=== PATIENT | male | born 1970 | race Caucasian/White ===

== ENCOUNTER → 2018-01-16 10:06 | Outpatient (CLI) | payer OTHER, SELFPAY ==
[2018-01-16 12:25] LABS: ALB/GLOB Ratio 1.1 RATIO (0.9-2.4); AST(SGOT) 20 U/L (15-37); Alanine Aminotransfer ALT/SGPT 39 U/L (16-61); Albumin, Serum 3.9 g/dL (3.2-5.0); Alkaline Phosphatase 83 U/L (45-117); Anion Gap 6 (5-15); BUN 9 mg/dL (7-18); BUN/Creat Ratio 8.9 RATIO (10-20); Calcium,Total 8.7 mg/dL (8.5-10.1); Chloride 108 mmol/L (98-107); Cholesterol 155 mg/dL (200); Creatinine, Serum 1.01 mg/dL (0.70-1.30); EST Glomerular Filtration Rate 85 mL/min (>60); Est Glom Filt Rate - Afr Amer 103 mL/min (>60); Globulin 3.6 g/dL (2.2-4.2); Glucose 90 mg/dL (74-106); High Density Lipoprotein 30 mg/dL; Protein, Total 7.5 g/dL (6.4-8.2); Sodium Level 146 mmol/L (136-145); Triglycerides 166 mg/dL; Very Low Density Lipoprotein 33 mg/dL (5-40)
== END ==
PROVIDERS: Family Provider Family Medicine; PCP Family Medicine; Visit Provider Family Medicine
DX: E78.5 Hyperlipidemia, unspecified (principal); K21.9 Gastro-esophageal reflux disease without esophagitis
CPT/HCPCS: 36415; 80053; 80061

== ENCOUNTER → 2018-08-04 13:48 | Outpatient (CLI) | payer OTHER, SELFPAY ==
--- NOTE | 2018-08-04 13:56 | ECHOD_ITS ---
Reason For Study: HEART VALVE DISEASE Procedure This was a 2D Doppler, Color Flow transthoracic echocardiogram. Exam performed in department. Left Ventricle Normal size and thickness. The estimated ejection fraction is 65 %. Normal diastology for age. No regional wall motion abnormalities noted. Right Ventricle Normal size and thickness. Normal systolic function. Atria Normal left atrium. Normal right atrium. Normal atrial septum. Mitral Valve The mitral valve is structurally normal. No prolapse or stenosis seen. Tricuspid Valve Normal tricuspid valve. Trivial tricuspid valve insufficiency. Right ventricular systolic pressure estimated to be 26 mmHg. Aortic Valve Normal aortic valve. Trisinus/trileaflet aortic valve. Pulmonic Valve Normal pulmonic valve. Great Vessels Normal aortic root. Normal arch. Normal inferior vena cava. Inferior vena cava collapse with sniff. Pericardium/Pleural No pericardial effusion. MMode/2D Measurements & Calculations LVIDd: 4.3 cm IVSd: 0.68 cm Ao root diam: 3.3 cm LVIDs: 3.0 cm LVPWd: 0.83 cm RVDd: 3.7 cm FS: 28.6 % LAV(MOD-bp): 35.6 ml LA A4 area: 14.7 cm2 LA dimension(2D): 3.2 cm LAV(MOD-bp) Indexed: 18.4 ml/m2 LAV(MOD-sp2): 38.6 ml LAV(MOD-sp4): 32.0 ml RA A4 area: 13.8 cm2 Time Measurements MV dec time: 0.31 sec Doppler Measurements & Calculations MV E max rory: 94.2 cm/sec Lat Peak E' Rory: 14.8 cm/sec Med Peak E' Rory: 10.6 cm/sec MV A max rory: 90.0 cm/sec E/E' lat: 6.3 E/E' med: 8.9 MV E/A: 1.0 Ao V2 max: 141.6 cm/sec LV V1 max: 114.8 cm/sec PA V2 max: 122.2 cm/sec Ao max P.0 mmHg LV V1 max P.3 mmHg TR max rory: 241.2 cm/sec TR max P.7 mmHg Interpretation Summary The estimated ejection fraction is 65 %. Normal diastology for age. Trivial tricuspid valve insufficiency. Right ventricular systolic pressure estimated to be 26 mmHg. There is no comparison study available. Ordering Physician: Israel Logan Referring Physician: ISRAEL LOGAN Performed By: Iris Rhodes RDCS, RVT
== END ==
PROVIDERS: Family Provider Family Medicine; PCP Family Medicine; Referring Provider Family Medicine; Visit Provider Family Medicine
DX: I38 Endocarditis, valve unspecified (principal)
CPT/HCPCS: 93306

== ENCOUNTER 2018-09-19 00:32 | Emergency (ER) | payer OTHER, SELFPAY ==
[2018-09-19 00:33] VITALS: BP 142/72; PULSE 96; RESP 15; TEMP 36.6; O2SAT 97; BMI 33.0
--- NOTE | 2018-09-19 00:57 | ED.DCSUM_ITS ---
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 Subsequently, he woke up so on after falling asleep with asthma symptoms. He states this has happened before when he has had reflux. He denies any vomiting. He did his albuterol MDI at home several times and got some relief but is not back to normal and was worried about using his MDI to much. He states when this has happened in the past, his asthma flareup last for several hours and then usually he is fine. - Past Medical History (1) Asthma Status: Chronic (2) GERD (gastroesophageal reflux disease) Status: Chronic Past Medical History - Allergies and Home Meds Allergies/Adverse Reactions: Allergies lansoprazole [From Prevacid] Adverse Reaction (Verified 09/19/18 00:36) Nausea theophylline Adverse Reaction (Verified 09/19/18 00:36) Hives Primary Care Physician: Darinel Foley MD [Primary Care Provider] - Lives: Spouse/ Significant Other Smoking Status: Never smoker Review of Systems General: Denies: Chills, Fever Cardiovascular: Reports: Chest pain - tightness. Denies: Palpitations Respiratory: Reports: Dyspnea, Cough. Denies: Sputum Gastrointestinal: Denies: Abdominal pain, Nausea, Vomiting, Diarrhea Musculoskeletal: Denies: Swelling, Extremity Pain Physical Exam Vital Signs/Narrative: Vital Signs Temp Pulse Resp BP Pulse Ox 09/19/18 00:33 97.9 F 96 15 142/72 H 97 Inital Vital Signs reviewed: Yes General: Well nourished, Well developed, No Acute Distress - speaking in full sentences Head: Normocephalic, Atraumatic Eyes: Perrl, EOMI Neck: Supple, Nontender, No JVD Cardiovascular: Regular rate, Regular rhythm, No murmurs Respiratory: No distress, Chest nontender, Wheezing - slight insp/exp, diffusely Skin: Normal color, No rash, No Trauma Neurological: Alert, Oriented x3, Cranial nerves II-XII grossly intact, Normal Strength, Normal Sensation, Normal Gait Psychological: Normal affect, Normal Mood Diagnostic/Tx/Re-eval - Medical Decision Making Patient was given a duo nebulizer treatment, he is feeling much better. He is comfortable going home. I do not think he needs further emergency workup right now. We will give him a prescription for prednisone as a wait and see prescription without initiating it at this time and he is comfortable with that plan as well. Given reasons to return. ED Disposition - Plan for ED Patient: Disposition: Home or Assisted Living Diagnosis: Acute asthma exacerbation Instructions: ED Inhaler Use Prescriptions: Prednisone [Deltasone] 40 mg PO DAILY #10 tab Referrals: Darinel Foley MD [Primary Care Provider] - 3-5 Days if not improving Additional Instructions: If symptoms last longer than 1 or 2 days, fill and take prescription for prednisone until finished.
[2018-09-19] MEDS: Ipratropium/Albuterol Sulfate 3 ML AMPUL.NEB INHALATION (01:05)
[2018-09-19 01:06] VITALS: PULSE 96; RESP 16
[2018-09-19 01:11] VITALS: O2SAT 96
[2018-09-19 01:34] VITALS: PULSE 88; RESP 18; O2SAT 96
== END 2018-09-19 01:34 | disposition home or self-care (01) ==
PROVIDERS: Emergency Provider Emergency Medicine; Family Provider Family Medicine; PCP Family Medicine
DX: J45.901 Unspecified asthma with (acute) exacerbation (principal); K21.9 Gastro-esophageal reflux disease without esophagitis; Z79.899 Other long term (current) drug therapy
CPT/HCPCS: 94640; 99282; J7030

== ENCOUNTER 2018-10-22 01:55 | Emergency (ER) | payer OTHER, SELFPAY ==
[2018-10-22 01:56] VITALS: BP 157/110; PULSE 81; RESP 19; TEMP 37; O2SAT 91; BMI 33.4
[2018-10-22 01:59] VITALS: RESP 18; O2SAT 95
--- NOTE | 2018-10-22 02:03 | ED.VISSUMM ---
- ER Visit Summary Date of Service: 10/22/18 Chief Complaint: Asthma flare History of Present Illness: The patient is a 48 M who presents for an asthma flare that started 1 hour ago. Patient states that if he eats spicy food and gets reflux, it will trigger his asthma. He did this this evening, and then woke up about 1 hour ago with shortness of breath. He tried his home breathing treatment without relief. He denies any associated cough, chest pain, fever or any other complaints. Physical Examination: Vital signs: afebrile, hemodynamically stable, no hypoxia on room air General: well nourished, well developed, appears mildly short of breath, able to speak in multi word sentences Skin: warm, dry, no rash, no pallor HEENT: normocephalic and atraumatic; PERRL, EOMI, moist mucous membranes Cardiovascular: regular rate and rhythm without murmurs, no peripheral edema, 2+ pulses all distal extremities Respiratory: Mild increased work of breathing, lungs have mild wheezing in the anterior ash, diminished in the bilateral posterior bases Abdominal: Abdomen is soft, nontender with normoactive bowel sounds, no guarding or rebound, no masses MSK: Moves all extremities, no deformities, normal strength Neuro: Awake and alert, oriented ?4. No facial droop, sensation and motor function intact and symmetric Test Results: Medications Given Discontinued Medications Albuterol/Ipratropium (Duoneb) 3 ml INHALATION X1 ONE Stop: 10/22/18 02:03 Last Admin: 10/22/18 02:11 Dose: 3 ml Emergency Department Course and Treatment: Patient was given a DuoNeb. At this time he is declining prednisone. He was offered and declined medication for acid reflux, as he states that is well controlled at this time. On reevaluation, patient was feeling much better after the breathing treatment. He had resolution of the wheezing in the anterior ash, and his lungs were more full and without any wheezing in the posterior ash. Patient states that he felt much better and felt well enough to go home. He was given a prescription for a prednisone burst that he can use if he has recurrence of his asthma symptoms. The stated that they do have the nebulizer machine at home but have never gotten any of the albuterol treatments. He was given a prescription for the albuterol nebulizer treatments to use as needed at home. Patient was discharged in improved condition. Treatment Plan: [] Disposition: [] Impression: Mild asthma exacerbation This note was generated with [employer] dictation software. It may contain incorrect words, spelling, and punctuation that were not noted in review of the chart prior to signing ED Disposition - Plan for ED Patient: Disposition: Home or Assisted Living Instructions: ED Reactive Airway Disease Prescriptions: Albuterol Aerosols [Ventolin Aerosols] 2.5 mg INHALATION Q4H PRN #30 vial Prednisone [Deltasone] 40 mg PO DAILY #10 tab Referrals: Darinel Foley MD [Primary Care Provider] - 3-5 Days if not improving Additional Instructions: You may use the nebulizer treatments as needed for wheezing and asthma symptoms. If you have return of your asthma flare, you may fill the prednisone prescription and take it daily as prescribed. If at any point you have worsening of your asthma symptoms that are not responding to your medications at home, return immediately to the emergency department for another evaluation. If you have any worsening of your condition or any new concerning symptoms, please return immediately to the emergency department for another evaluation.
[2018-10-22] MEDS: Ipratropium/Albuterol Sulfate 3 ML AMPUL.NEB INHALATION (02:11)
[2018-10-22 02:12] VITALS: PULSE 91; RESP 18
[2018-10-22 03:01] VITALS: BP 165/92; PULSE 80; RESP 16; O2SAT 94
== END 2018-10-22 03:02 | disposition home or self-care (01) ==
PROVIDERS: Emergency Provider Emergency Medicine; Family Provider Family Medicine; PCP Family Medicine
DX: J45.901 Unspecified asthma with (acute) exacerbation (principal); K21.9 Gastro-esophageal reflux disease without esophagitis; Z79.899 Other long term (current) drug therapy
CPT/HCPCS: 94640; 99282

== ENCOUNTER 2020-11-18 03:45 | Emergency (ER) | payer OTHER, SELFPAY ==
[2020-11-18 03:46] VITALS: BP 153/92; PULSE 93; RESP 16; TEMP 36.6; O2SAT 98; BMI 31.6
--- NOTE | 2020-11-18 03:56 | EX.ED.DYSGE1 ---
HPI History of Present Illness Chief Complaint: GI Bleed Informant: patient Narrative Narrative: Is a 50-year-old male who states tonight he was attempting to have a bowel movement with straining. He went to wipe and noticed a lot of blood. He states that there is something not right with his rectum. He denies any pain. He has a history of having hemorrhoids in the past but typically does not have blood with bowel movements. He notes most days he has diarrhea about once a week he will have a formed stool. No prior colonoscopy. [facility] Medical History Asthma GERD (gastroesophageal reflux disease) Home Medications Cetirizine Hcl [Zyrtec] 10 mg PO DAILY 05/17/16 [History Last Taken Unknown] Simvastatin 20 mg PO DAILY 05/17/16 [History Last Taken Unknown] omeprazole 20 mg PO DAILY 05/17/16 [History Last Taken Unknown] albuterol sulfate 2.5 mg INHALATION Q4H PRN #30 vial 10/22/18 [Rx Last Taken Unknown] prednisone 40 mg PO DAILY #10 tab 10/22/18 [Rx Last Taken Unknown] Allergy/AdvReac Type Severity Reaction Status Date / Time lansoprazole [From Prevacid] AdvReac Nausea Verified 11/18/20 03:48 theophylline AdvReac Hives Verified 11/18/20 03:48 Social History (Updated 11/18/20 @ 03:[address] Adithya Polanco DO) Smoking Status: Never smoker substance use type: does not use ROS ROS ED Constitutional Constitutional ED: Denies chills or weight loss Eyes Eyes: Denies change in vision or diplopia ENT ENT ED: Denies ear pain, rhinorrhea or sore throat Cardiovascular Cardiovascular: Denies chest pain, orthopnea, palpitations or racing heartbeat Respiratory/Chest Respiratory/Chest: Denies cough, dyspnea or orthopnea Gastrointestinal Gastrointestinal: Reports constipation, diarrhea and other Details: See history of present illness ; Denies abdominal pain, nausea or vomiting Genitourinary Genitourinary ED: Denies dysuria, hematuria or urinary frequency Musculoskeletal Musculoskeletal: Denies arthralgias or myalgias Integumentary Denies abscess or rash Neurologic Neurologic: Denies headache(s) or weakness Psychiatric Psychiatric: Denies anxiety, depression, suicidal ideation or suicidal thoughts Endocrine Endocrinology: Denies polydipsia, polyphagia or polyuria Allergic/Immunologic Allergic/Immunologic ED: Denies mouth swelling, tongue swelling or urticaria EXAM Physical Exam Const Vital Signs: 11/18/20 03:46 Temperature 98 F Temperature Source Temporal Pulse Rate 93 Respiratory Rate 16 Blood Pressure 153/92 H Blood Pressure Mean 112 Pulse Ox 98 Oxygen Delivery Method Room Air Positive well nourished and well developed General Appearance ED: well developed HEENT Reports normocephalic, head/scalp atraumatic and moist mucous membranes Eyes PERRL and EOMs intact bilaterally Neck no lymphadenopathy, supple and no JVD Resp normal respiratory effort and clear to auscultation bilaterally Cardio regular rate, regular rhythm and no murmurs GI normal to inspection, nondistended, normoactive bowel sounds and non-tender GI Narrative: On rectal exam patient has a rectal prolapse. Palpation: soft Back/Spine no CVA tenderness and normal ROM Extremity normal to inspection General Extremety ED: Negative for edema General Extremity: Negative for edema Neuro oriented x3 and CN's II-XII intact bilaterally Sensorium / Orientation: alert Motor Exam: strength 5/5 throughout Psych mental status grossly normal Mood & Affect: Negative for depressed or tearful Skin no rashes or lesions noted and no wounds MDM MDM MDM Narrative Medical decision making narrative: Sugar was applied to the rectal prolapse. Gentle pressure was used to fully reduce the prolapse. There is evidence of external hemorrhoidal disease. Patient was advised on follow-up and self care. Discharge Plan Triage Chief Complaint: GI Bleed ED Provider: Adithya Polanco Dx/Rx/DC Orders Clinical Impression: Rectal prolapse Instructions: ED Rectal Prolapse Prescriptions: No Action omeprazole 20 MG capsule 20 mg PO DAILY RF: 0 Cetirizine Hcl [Zyrtec] 10 MG tablet 10 mg PO DAILY RF: 0 Simvastatin 20 mg PO DAILY RF: 0 albuterol sulfate 2.5 MG/3 ML solution for nebulization 2.5 mg inhalation Q4H PRN Qty: 30 RF: 1 prednisone 20 MG tablet 40 mg PO DAILY Qty: 10 RF: 0 Primary Care Provider: Darinel Foley Referrals: Darinel Foley MD [Primary Care Provider] - As Needed Yanet Casarez MD [STAFF PHYSICIAN] - As Needed (If you wish to speak to a surgeon regarding rectal prolapse.) Disposition Disposition: Home, self care
== END 2020-11-18 04:37 | disposition home or self-care (01) ==
LOC: ED 04:32
PROVIDERS: Emergency Provider Emergency Medicine; PCP Family Medicine
DX: K62.3 Rectal prolapse (principal); Z87.19 Personal history of other diseases of the digestive system
CPT/HCPCS: 99282

== ENCOUNTER → 2020-11-29 17:17 | Outpatient (CLI) | payer OTHER, SELFPAY ==
[2020-11-18 03:46] VITALS: BMI 31.6
--- NOTE | 2020-11-29 17:20 | RAD_ITS ---
STUDY: X-RAY - ACUTE ABDOMINAL SERIES REASON FOR EXAM: Male, 50 years old. CONSTIPATED TECHNIQUE: Single view of the chest. Supine, and erect view(s) of the abdomen were obtained. COMPARISON: None. FINDINGS: The lungs are clear and expanded. Normal size heart. Normal mediastinum and nitish. Normal visualized pulmonary arteries. Normal visualized aortic arch and descending thoracic aorta. There is an abundance of fecal material throughout the colon. The soft tissue structures of the abdomen and pelvis are unremarkable. Normal visualized osseous structures. RAD/Acute Abdomen Inc Chest IMPRESSION: Large amount of fecal material is seen in the colon. Electronically Signed: Alek Johnson MD at 15:38 EDT , Service support ,
== END ==
PROVIDERS: PCP Family Medicine; Referring Provider Family Medicine; Visit Provider Family Medicine
DX: K59.00 Constipation, unspecified (principal)
CPT/HCPCS: 74022

== ENCOUNTER 2021-02-26 22:42 | Emergency (ER) | payer OTHER, SELFPAY ==
[2021-02-26 22:43] VITALS: BP 152/90; PULSE 102; RESP 16; TEMP 37; O2SAT 100; BMI 29.9
--- NOTE | 2021-02-26 23:41 | CT_ITS ---
STUDY: CT ABDOMEN AND PELVIS WITH CONTRAST REASON FOR EXAM: Male, 50 years old. Hemorrhagic rectal mass, concern neoplasm RADIATION DOSAGE (If Supplied By Facility): CTDIvol = ( 14.84 ) mGy, DLP = ( 1146.21 ) mGycm TECHNIQUE: Transaxial images were obtained from the dome of the diaphragm to the symphysis pubis without oral contrast. IV 100mL Isovue-370 was administered. Sagittal and coronal images were reconstructed. Individualized dose optimization techniques were used for this CT. COMPARISON: None. FINDINGS: The visualized lung bases are unremarkable. The visualized portions of the heart are within normal limits. Normal liver. Normal gallbladder and extrahepatic biliary system. Normal spleen. Normal pancreas. Normal bilateral adrenal glands. Normal right kidney. Normal left kidney. There is a small hiatal hernia. Normal small intestine. Normal colon. The appendix is visualized and appears normal. Normal abdominal aorta. Normal inferior vena cava. Normal retroperitoneum. Normal urinary bladder. There is rectal prolapse possibly due to the presence of soft tissue mass measures 5 cm. Normal abdominal wall. Normal osseous structures. CT/Abdomen/Pelvis W IV Cont ONLY IMPRESSION: There is rectal prolapse possibly due to the presence of soft tissue mass measures 5 cm. Electronically Signed: Danuta Guerrero MD at 1:26 EDT Tel , Service support ,
--- NOTE | 2021-02-26 23:45 | ED.VIS.GI ---
HPI HPI - GI History of Present Illness Chief Complaint: GI Bleed Detail of Chief Complaint: Rectal prolapse with bleeding Informant: patient and spouse/S.O. Abdominal Pain/Flank Pain Onset: Hours (1.5 hours prior to arrival) Context: Sudden Onset Timing: Continuous Quality: - (Patient denies any pain) Location: See Diagram (Rectum/anus) Current Severity: Blood saturated through patient's jeans Maximum Severity: Not applicable Worsened by: Nothing Relieved by: Nothing Nausea/Vomiting/Emesis GI Symptom: Negative for Nausea and Vomiting Diarrhea/Melena/Hematochezia GI Symptom: Positive for Hematochezia; Negative for Diarrhea and Melena Onset: Hours (1.5 hours prior to presentation) Stool Quality: Positive for BRB per rectum Associated Symptoms Associated Symptoms: Negative for Dysuria, Frequency, Hematuria and Urgency Narrative Narrative: Patient is a 50-year-old male with history of asthma, GERD and rectal prolapse. Patient presents because he believes he has a rectal prolapse. He states he had blood in the tissue. There is blood in the commode. There was no clots. Stool is not black. He does have history of hemorrhoids. She does not believe this is a hemorrhoid. He states something is sticking out. He denies abdominal or rectal pain. He does endorse change in the caliber of his stool over the past couple of months. He denies bruising easily. He denies night sweats. He denies weight loss. Prior similar symptoms: Yes Recent Illness/Hospitalization: No PFSH PFSH Medical History Asthma GERD (gastroesophageal reflux disease) Hypercholesteremia Home Medications Cetirizine Hcl [Zyrtec] 10 mg PO DAILY 05/17/16 [History Last Taken Unknown] Simvastatin 20 mg PO DAILY 05/17/16 [History Last Taken Unknown] omeprazole 20 mg PO DAILY 05/17/16 [History Last Taken Unknown] albuterol sulfate 2.5 mg INHALATION Q4H PRN #30 vial 10/22/18 [Rx Last Taken Unknown] Allergy/AdvReac Type Severity Reaction Status Date / Time lansoprazole [From Prevacid] AdvReac Nausea Verified 02/26/21 22:43 theophylline AdvReac Hives Verified 02/26/21 22:43 other (There is no family history of rectal or colon cancer) Social History (Updated 02/26/21 @ 23:[address] Ravin Rick MD) household members: spouse Smoking Status: Never smoker alcohol intake: current alcohol intake frequency: other substance use type: does not use ROS ROS ED Constitutional Constitutional ED: Denies chills, fever(s), subjective or sweats ENT ENT ED: Denies ear pain, rhinorrhea or sore throat Cardiovascular Cardiovascular: Denies chest pain, palpitations or racing heartbeat Respiratory/Chest Respiratory/Chest: Denies cough, dyspnea or dyspnea on exertion Gastrointestinal Gastrointestinal: Reports other Details: Rectal mass with bright red bleeding from anus ; Denies abdominal pain, diarrhea, nausea or vomiting Genitourinary Genitourinary ED: Denies dysuria, hematuria or urinary frequency Musculoskeletal Musculoskeletal: Denies arthralgias, myalgias or neck pain Integumentary Denies rash Neurologic Neurologic: Denies headache(s) or weakness Hematologic/Lymphatic Hematologic/Lymphatic: Denies easy bleeding or easy bruising EXAM Physical Exam Const Vital Signs: 02/26/21 22:43 Temperature 98.6 F Temperature Source Temporal Pulse Rate 102 H Respiratory Rate 16 Blood Pressure 152/90 H Blood Pressure Mean 110 Pulse Ox 100 Oxygen Delivery Method Room Air Positive well nourished, well developed and obese General Appearance ED: well developed; Negative for pallor Nutritional Appearance: obese HEENT Reports moist mucous membranes normocephalic and atraumatic Eyes PERRL and EOMs intact bilaterally General Eye ED: Yes pale conjunctiva; Negative for scleral icterus Neck no lymphadenopathy, supple and no JVD Resp normal respiratory effort and clear to auscultation bilaterally Cardio regular rate, regular rhythm, S1 normal heart sound and S2 normal heart sound GI GI Narrative: Patient has a cluster of external hemorrhoids noted. There appears to be tissue protruding from the anus. When attempting to push there is resistance and concerned this represents a mass. The mass is friable and there is bright red bleeding noted. Narrative: External genitalia normal Back/Spine no CVA tenderness Lumbar Spine / Lower Back: Negative for lumbar spinal tenderness Extremity full ROM General Extremety ED: Negative for edema General Extremity: Negative for edema Neuro CN's II-XII intact bilaterally Sensorium / Orientation: alert, oriented to person, oriented to place and oriented to time Psych mental status grossly normal Skin no wounds General Skin Exam: Negative for jaundice or pallor Lesions: no lesions Rashes: no rashes MDM MDM MDM Narrative Medical decision making narrative: Because of concern for rectal mass and friable tissue and not a prolapse Dr. Soares was paged. She was informed of the findings. She raise possibility of bleeding from hemorrhoids. I informed her that there is a mass that is protruding approximately 2 cm and concern this may represent rectal carcinoma versus a prolapse or hemorrhoidal bleeding. Patient was made n.p.o. CT of the abdomen pelvis with IV contrast was ordered and appropriate blood work was ordered as well. Patient endorses dyspnea on exertion. He thought it was his asthma. He has had this for 1 to 2 months. states she is noted he lost some weight. His trousers have been slightly loose. Lab Data Attestation: I reviewed the patient's lab results. Lab results narrative: With microscopic anemia and history of change in stool caliber concern patient has malignancy. Awaiting radiologist interpretation of the CT prior to recontacting Dr. Radha Young Labs: Laboratory Results - last 24 hr 02/26/21 02/26/21 02/26/21 23:55 23:55 23:55 WBC 10.0 RBC 4.57 L Hgb 8.0 L Hct 30.3 L MCV 66.3 L MCH 17.5 L MCHC 26.4 L RDW Std Deviation 41.5 RDW Coeff of Rufus 17.6 H Plt Count 358 MPV 10.0 Immature Gran % (Auto) 0.700 Neut % (Auto) 60.3 Lymph % (Auto) 24.6 [place] % (Auto) 7.4 Eos % (Auto) 6.3 H Baso % (Auto) 0.7 Absolute Neuts (auto) 6.0 Absolute Lymphs (auto) 2.46 Nucleated RBC % 0 Sodium 141 Potassium 3.3 L Chloride 106 Carbon Dioxide 28.0 Anion Gap 7 BUN 10 Creatinine 0.88 Estim Creat Clear Calc 89.30 Est GFR (MDRD) Af Amer 118 Est GFR (MDRD) Non-Af 98 BUN/Creatinine Ratio 11.3 Glucose 117 H Calcium 8.4 L Total Bilirubin 0.60 Direct Bilirubin 0.13 AST 16 ALT 28 Alkaline Phosphatase 85 Total Protein 6.9 Albumin 3.2 Globulin 3.7 Blood Type A POSITIVE Antibody Screen NEGATIVE Radiography Diagnostic Testing: Radiology Impression Abdomen/Pelvis CT 02/26/21 23:41 IMPRESSION: There is rectal prolapse possibly due to the presence of soft tissue mass measures 5 cm. Electronically Signed: Danuta Guerrero MD at 1:26 EDT Tel , Service support , Patient was made aware of his CAT scan results. Case discussed with Dr. Radha Young. She recommended transfer to a larger institution. Patient requested hospitals in [place]. If none are available at [facility] or [facility] will try [facility]. Discharge Plan Triage Chief Complaint: GI Bleed ED Provider: Ravin Rick Dx/Rx/DC Orders Clinical Impression: Mass in rectum, Microcytic anemia, Painless rectal bleeding Prescriptions: No Action omeprazole 20 MG capsule 20 mg PO DAILY RF: 0 Cetirizine Hcl [Zyrtec] 10 MG tablet 10 mg PO DAILY RF: 0 Simvastatin 20 mg PO DAILY RF: 0 albuterol sulfate 2.5 MG/3 ML solution for nebulization 2.5 mg inhalation Q4H PRN Qty: 30 RF: 1 Primary Care Provider: Darinel Foley Referrals: Darinel Foley MD [Primary Care Provider] - Disposition Disposition: Acute Care Hospital Discharge Location: [facility]
[2021-02-27 00:01] LABS: Absolute Lymphocyte Count 2.46 X10^3/uL (0.83-4.51); Basophil# 0.07 X10^3/uL; Basophil% 0.7 % (0-1); Eosinophil# 0.63 X10^3/uL; Eosinophils% 6.3 % (0-5); Hematocrit 30.3 % (40-54); Lymphocyte # 2.46 X10^3/ul (0.83-4.51); Lymphocyte % 24.6 % (19-41); Mean Corp Hgb Conc 26.4 g/dL (32-36); Mean Corpuscular Hgb 17.5 pg (27.0-32.0); Mean Corpuscular Volume 66.3 fL (80-94); Monocyte# 0.74 X10^3/uL; Monocyte% 7.4 % (0-10); NRBC Flagged by Analyzer 0 % (0-5); Neutrophil # 6.02 X10^3/uL (2.7-7.7); Neutrophil % 60.3 % (47-70); Platelet Count 358 K/mm3 (150-450); RBC Distribution Width CV 17.6 % (11.6-14.6); RBC Distribution Width SD 41.5 fl (35.1-43.9); Red Blood Count 4.57 M/mm3 (4.6-6.2)
[2021-02-27] MEDS: 0.9% Normal Saline 1,000 ML 125 ML IV (00:07)
[2021-02-27 00:33] LABS: AST(SGOT) 16 U/L (15-37); Alanine Aminotransfer ALT/SGPT 28 U/L (16-61); Albumin, Serum 3.2 g/dL (3.2-5.0); Alkaline Phosphatase 85 U/L (45-117); Anion Gap 7 (5-15); BUN 10 mg/dL (7-18); BUN/Creat Ratio 11.3 RATIO (10-20); Bilirubin, Direct 0.13 mg/dL (0.00-0.30); Calcium,Total 8.4 mg/dL (8.5-10.1); Chloride 106 mmol/L (98-107); Creatinine, Serum 0.88 mg/dL (0.70-1.30); EST Glomerular Filtration Rate 98 mL/min (>60); Est Glom Filt Rate - Afr Amer 118 mL/min (>60); Globulin 3.7 g/dL (2.2-4.2); Glucose 117 mg/dL (74-106); Potassium 3.3 mmol/L (3.5-5.1); Protein, Total 6.9 g/dL (6.4-8.2); Sodium Level 141 mmol/L (136-145)
[2021-02-27 05:41] VITALS: BP 150/85; PULSE 77; RESP 18; TEMP 36.3; O2SAT 99
== END 2021-02-27 05:51 | disposition short-term general hospital (02) ==
PROVIDERS: Emergency Provider Emergency Medicine; PCP Family Medicine
DX: K62.89 Other specified diseases of anus and rectum (principal); K62.5 Hemorrhage of anus and rectum; D50.9 Iron deficiency anemia, unspecified; K21.9 Gastro-esophageal reflux disease without esophagitis; E78.00 Pure hypercholesterolemia, unspecified; E66.9 Obesity, unspecified; Z68.29 Body mass index [BMI] 29.0-29.9, adult; Z79.899 Other long term (current) drug therapy
CPT/HCPCS: 74177; 80048; 80076; 85025; 86850; 86900; 86901; 87426; 96360; 96361; 99285; J7030; Q9967; A4216

== ENCOUNTER 2021-06-10 21:25 | Emergency (ER) | payer OTHER, SELFPAY ==
[2021-06-10 21:25] VITALS: PULSE 93; RESP 16; TEMP 36.6; O2SAT 100; BMI 29.9
--- NOTE | 2021-06-10 22:22 | EDS_ITS ---
HPI History of Present Illness Chief Complaint: General Illness Informant: patient and spouse/S.O. Onset/Context/Timing Onset: Today Context: Gradual Onset Quality: fever Current Severity: Gone Maximum Severity: Moderate Worsened by: nothing Relieved by: tylenol Associated Symptoms Associated Symptoms: none Narrative Narrative: Patient is a 50-year-old with a history of asthma and recently diagnosed with colon cancer for which he just got a chemotherapy started getting a fever today after being exposed to a family member who they suspected had Covid, he did a home Covid test that turned positive. He has no dyspnea or other symptoms just fevers, but presents mainly due to get referred for monoclonal antibody infusion therapy at the advice of his oncologist. He and his are vaccinated against Covid. [facility] Medical History Anemia Asthma Cancer Chewing tobacco use CINV (chemotherapy-induced nausea and vomiting) Encounter for education Gastric reflux GERD (gastroesophageal reflux disease) High cholesterol History of echocardiogram Hypercholesteremia Iron deficiency anemia due to chronic blood loss Wears glasses Home Medications Cetirizine Hcl [Zyrtec] 10 mg PO DAILY 05/17/16 [History Last Taken Unknown] Simvastatin 20 mg PO DAILY 05/17/16 [History Last Taken Unknown] albuterol sulfate 2.5 mg INHALATION Q4H PRN #30 vial 10/22/18 [Rx Last Taken Unknown] budesonide-formoterol HFA 80 mcg-4.5 mcg/actuation aerosol inhaler 2 puff INHALATION BID 03/27/21 [History Last Taken Unknown] lidocaine-prilocaine 2.5 %-2.5 % topical cream 1 applic TOPICAL ONCE PRN 30 Days #30 g 06/07/21 [Rx Last Taken Unknown] ondansetron 8 mg disintegrating tablet 8 mg PO Q8H PRN #30 tab 06/07/21 [Rx Last Taken Unknown] Allergy/AdvReac Type Severity Reaction Status Date / Time lansoprazole [From Prevacid] Allergy Severe Nausea Verified 06/10/21 21:28 theophylline AdvReac Severe Hives Verified 06/10/21 21:28 Family History Grandfather Cancer esophageal Mother Heart disease Grandmother Heart disease Surgical History Hx of colonoscopy Social History household members: spouse number of children: 2 current occupation: school curriculum [email or web address] Smoking Status: Current some day smoker tobacco type: cigarettes and smokeless tobacco alcohol intake: current alcohol intake frequency: other substance use type: does not use ROS ROS ED Constitutional Constitutional ED: Reports fever(s); Denies chills Eyes Eyes: Denies change in vision or diplopia ENT ENT ED: Denies rhinorrhea or sore throat Cardiovascular Cardiovascular: Denies chest pain or palpitations Respiratory/Chest Respiratory/Chest: Denies cough or dyspnea Gastrointestinal Gastrointestinal: Denies abdominal pain, diarrhea, nausea or vomiting Genitourinary Genitourinary ED: Denies dysuria or hematuria Musculoskeletal Musculoskeletal: Denies back pain or neck pain Integumentary Denies abscess or rash Neurologic Neurologic: Denies headache(s), paresthesias or weakness Psychiatric Psychiatric: Denies anxiety or suicidal thoughts EXAM Physical Exam Const Vital Signs: 06/10/21 21:25 06/10/21 21:56 Temperature 98 F Temperature Source Temporal Pulse Rate 93 Respiratory Rate 16 Respiratory Effort Normal Respiratory Pattern Normal Pulse Ox 100 Oxygen Delivery Method Room Air Positive well nourished and well developed General Appearance ED: well developed and NAD HEENT Reports moist mucous membranes normocephalic and atraumatic Eyes PERRL and EOMs intact bilaterally Neck full ROM and supple Resp normal respiratory effort Back/Spine General Back: other FROM Extremity normal to inspection Neuro oriented x3, CN's II-XII intact bilaterally, no sensory deficits noted and gait normal Sensorium / Orientation: awake and alert Motor Exam: strength 5/5 throughout Skin no rashes or lesions noted and no wounds MDM MDM MDM Narrative Medical decision making narrative: Patient well-appearing vital signs normal without hypoxemia, referred for monoclonal antibody infusion therapy given appropriate discharge instructions. We did a rapid test here that confirmed he was positive, in order to have an official positive test for the antibody infusion requirements. Discharge Plan Triage Chief Complaint: General Illness ED Provider: Zaire Butler Dx/Rx/DC Orders Clinical Impression: COVID-19 Instructions: Coronavirus Disease 2019 (COVID-19): Caring for Yourself or Others Prescriptions: No Action budesonide-formoterol [Symbicort] 80-4.5 mcg/actuation HFA aerosol inhaler 2 puff inhalation BID RF: 0 ondansetron 8 mg tablet,disintegrating 8 mg PO Q8H PRN (Reason: nausea and vomiting) Qty: 30 RF: 2 lidocaine-prilocaine 2.5-2.5 % cream 1 applic topical ONCE PRN (Reason: port access) 30 Days Qty: 30 RF: 2 Cetirizine Hcl [Zyrtec] 10 MG tablet 10 mg PO DAILY RF: 0 Simvastatin 20 mg PO DAILY RF: 0 albuterol sulfate 2.5 MG/3 ML solution for nebulization 2.5 mg inhalation Q4H PRN Qty: 30 RF: 1 Primary Care Provider: Darinel Foley Referrals: Darinel Foley MD [Primary Care Provider] - As Needed Activity Restrictions/Additional Instructions: Try to get a home portable pulse oximeter and closely watch your oxygen levels periodically. If you stay below 90% for more than a minute or so, and/or you are feeling like your breathing is getting worse, return to the emergency department for further evaluation. You are a candidate for monoclonal antibody infusion therapy, see the attached instructions for more information. They will call you concerning when they want you to come to the clinic to get the infusion which is a one-time dose to help protect you from getting more ill and becoming hospitalized with life- threatening illness due to Covid given your risk for worsening. Disposition Disposition: Home, Self Care
[2021-06-10 22:53] VITALS: RESP 18
== END 2021-06-10 22:55 | disposition home or self-care (01) ==
PROVIDERS: Emergency Provider Emergency Medicine; PCP Family Medicine
DX: U07.1 COVID-19 (principal); C18.9 Malignant neoplasm of colon, unspecified; E78.00 Pure hypercholesterolemia, unspecified; F17.210 Nicotine dependence, cigarettes, uncomplicated; F17.220 Nicotine dependence, chewing tobacco, uncomplicated; Z79.899 Other long term (current) drug therapy
CPT/HCPCS: 87426; 99282

== ENCOUNTER 2021-07-09 05:24 | Day surgery (SDC) | payer OTHER, SELFPAY ==
[2021-07-09 06:27] VITALS: BP 130/79; PULSE 66; RESP 16; TEMP 36.5; O2SAT 98; BMI 29.3
[2021-07-09] MEDS: Lactated Ringers 1,000 ML 30 ML IV (06:47)
[2021-07-09] MEDS: Cefazolin 2 GM in 0.9% Normal Saline 100 ML IV (07:28)
--- NOTE | 2021-07-09 07:28 | HP.PCM_ITS ---
History and Physical Date of Admission: 07/09/21 Intake Vital Signs 05/29/21 13:18 Height 5 ft 5 in Weight: 180 lb BMI 29.9 BP 144/88 H Blood Pressure Location Rt brachial Position Sitting Respiration 18 Intake Visit Reasons: PORT PLACEMENT Chief Complaint: port Supervisor Offset Plate Preparation Required: No Is patient in pain?: No Allergies lansoprazole [From Prevacid] Adverse Reaction (Verified 05/29/21 13:19) Nausea theophylline Adverse Reaction (Verified 05/29/21 13:19) Hives Medications Cetirizine Hcl [Zyrtec] 10 mg PO DAILY 05/17/16 [History Confirmed 05/29/21] Simvastatin 20 mg PO DAILY 05/17/16 [History Confirmed 05/29/21] omeprazole 20 mg PO DAILY 05/17/16 [History Confirmed 05/29/21] albuterol sulfate 2.5 mg INHALATION Q4H PRN #30 vial 10/22/18 [Rx Confirmed 05/29/21] budesonide-formoterol HFA 80 mcg-4.5 mcg/actuation aerosol inhaler 2 puff INHALATION BID 03/27/21 [History Confirmed 05/29/21] ondansetron 8 mg disintegrating tablet 8 mg PO Q8H PRN #30 tab 04/04/21 [Rx Confirmed 05/29/21] simethicone 180 mg capsule 180 mg PO BID PRN 04/09/21 [History Confirmed 05/29/21] PFSH Medical History Asthma CINV (chemotherapy-induced nausea and vomiting) Encounter for education GERD (gastroesophageal reflux disease) Hypercholesteremia Iron deficiency anemia due to chronic blood loss Family History Grandfather Cancer esophageal Mother Heart disease Grandmother Heart disease Social History household members: spouse number of children: 2 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 Patient has rectal cancer and requires chemotherapy and radiation before surgery. ROS General General: Yes colon cancer; No weight change, appetite, fatigue, breast cancer or weakness HEENT HEENT: No difficulty swallowing, eye injury, eye surgery, swollen glands or hoarseness Endo Endocrine: No thyroid disease, diabetes mellitus, thyroid cancer, Hair loss, heat intolerance or cold intolerance Skin Skin: No rash or changing moles Breast Breast: No left breast lump, right breast lump, nipple discharge, breast pain, abnormal mammogram, abnormal US or breast enlargement Musc Musculoskeletal: No back problems, arthritis, rheumatoid arthritis, gout or j oint pain Cardio Cardiovascular: No murmur, pacemaker, heart disease, atrial fibrillation, high blood pressure, heart attack, heart stent, palpitations, shortness of breat with exertion or chest pain Psych Psychiatric: No depression, anxiety or hearing voices Resp Respiratory: No shortness of breath, No sleep apnea, No cough, No COPD, Yes asthma, No emphysema and No wheezing Gastro Gastrointestinal: No abdominal pain, No nausea or vomiting, No diarrhea, Yes constipation, No blood in stool, Yes acid reflux, Yes hemorrhoids, No ulcers, No gallbladder problem and No black,tarry stools Demetrio Hematologic: No blood thinners, No blood disorders, No bleeding, Yes anemia and No blood clots Neuro Neurologic: No system reviewed and no additional complaints, except as documented, No as per HPI, No abnormal gait, No abnormal hearing, No abnormal movements, No abnormal speech, No behavioral changes, No burning sensations, No confusion, No convulsions, No disequilibrium, No dizziness, No localized wea kness, No frequent falls, No headache(s), No lack of coordination, No loss of vision, No memory loss, No numbness, No other visual disturbances, No radicular pain, No restless legs, No sensory deficit, No syncope, No tingling, No tremor(s), No weakness and No other Exam Const General: cooperative Orientation: alert and oriented x3 HENMT Head: normal to inspection Neck Neck: normal visual inspection and full ROM Chest Chest palpation & inspection: normal inspection of the chest Resp Effort & Inspection: normal respiratory effort Auscultation: clear to auscultation bilaterally Cardio Rate: regular rate Rhythm: regular rhythm GI Inspection: non-distended Palpation: soft and nontender Skin General: no rashes or lesions noted Neuro General: patient alert and patient oriented x3 Extrem General: full ROM Psych Appearance: grossly normal Mental Status: mental status grossly normal Assessment and Plan Assessment and Plan (1) Malignant neoplasm of rectum: Status: Acute Comment: Rectal adenocarcinoma, 13cm from anal verge, clinically stage IIIA(uT2 uN1 M0). Discussed TAMIKA first with chemo-radiation therapy using Xeloda again, then Chemotherapy XELOX before Surgery. Started Xeloda and Radiation therapy on 04/09/2021. Finished therapy on 05/18/2021 Tolerated therapy. Counts and chemistry are OK. Discussed further management with XELOX [id number] x4, risks, benefits and side effects. Pt agree to proceed. (2) Encounter for insertion of venous access port: Status: Acute Plan - Dr. Gonzales Perez MD: I discussed right chest port placement the patient in detail. I discussed the procedure as well as the risks include but not limited to bleeding, infection, pneumothorax or line infection or DVT. Patient understands and will schedule right chest port placement. Gonzales Perez MD Pager: [facility] [address] [place] [address], [address] [place] [phone] Office: Patient had Covid which delayed placement of port. No other changes H&P.
[2021-07-09] MEDS: Bupivacaine Mpf 0.5% 30 ML VIAL (07:43)
[2021-07-09] MEDS: Lidocaine 1% (20 ml mdv) 20 ML Vial (07:43)
[2021-07-09 08:03] VITALS: BP 130/79; BP 135/90; PULSE 63; RESP 14; TEMP 36.7; O2SAT 97
[2021-07-09 08:10] VITALS: BP 130/79; BP 132/83; PULSE 58; RESP 16; O2SAT 96
--- NOTE | 2021-07-09 08:11 | RAD_ITS ---
STUDY: X-RAY CHEST REASON FOR EXAM: Male, 50 years old. Line placement -- in pacu TECHNIQUE: Single AP portable view of the chest. COMPARISON: Comparison is made with prior study dated 11/29/2020. FINDINGS: A right-sided Port-A-Cath has been placed. The tip is at the junction of the superior vena cava and right atrium. The lungs are clear and expanded. There is no demonstrated pleural abnormality. Normal size heart. Normal mediastinum and nitish. Normal visualized pulmonary arteries. Normal visualized aortic arch and descending thoracic aorta. Normal visualized thoracic spine. Normal visualized ribs, clavicles, and shoulders. There is no demonstrated abnormality of the visualized soft tissue structures of the upper abdomen. RAD/CXR for Line Placement IMPRESSION: The tip of the right-sided portacatheter is at the junction of the superior vena cava and right atrium. Electronically Signed: Alek Johnson MD at 8:51 EST , Service support ,
--- NOTE | 2021-07-09 08:13 | OP.PCM_ITS ---
Problems Associated Problem List Diagnoses (1) Encounter for insertion of venous access port: Report of Operation Date of Procedure: 07/09/21 Pre-Operative Diagnosis: Need for vascular access for chemotherapy Post-Operative Diagnosis: Same Surgery/Procedure Performed:: Ultrasound and fluoroscopy guided right chest port placement utilizing right IJ Description of Procedure: After obtaining informed consent patient was brought back to the operating room MAC anesthesia was induced and the right chest and neck were prepped in normal sterile fashion. Ultrasound was used to evaluate b oth IJs and the right IJ was selected. Next, using a needle, the right IJ was accessed and a guidewire was passed on into the superior vena cava under fluoroscopy guidance. A small incision was made over the puncture site and the dilator introducer was placed over the guidewire. Next this was capped and the pocket was made for the port. 1% lidocaine with epinephrine was injected in the proposed port site. An incision was made with scalpel. Electrocautery was used to make a pocket under the skin and subcutaneous tissue. Hemostasis was obtained. Next, the catheter was tunneled up to the neck incision site and placed through the introducer. The peel-away introducer was removed and the position of the catheter was confirmed on fluoroscopy. Next, the catheter was trimmed and attached to the port with the locking device. Interrupted 2-0 Vicryl sutures were used to anchor the port to the chest wall and then the port was placed inside the pocket. The pocket was then flushed with saline and the port irrigated with saline. There was good blood return and the port flushed easily. Next, heparin was injected into the port. The skin was closed with subcutaneous interrupted 3-0 Vicryl sutures. A single 3-0 Vicryl sutures placed under the skin at the neck incision site. Steri-Strips were placed as well as op sites. Patient tolerated procedure well, was taken to PACU in stable condition. Chest x-ray will be obtained. Grafts/Implants Used: 8 Wolof PowerPort Admit VTE Documentation VTE Mechan Device Prophylaxis: SCD's
--- NOTE | 2021-07-09 08:14 | EX.PCM.DISCH ---
Discharge Instructions Procedure Port-A-Cath Diet Discharge Diet: Light diet - advance as tolerated (Pain medication may cause nausea. You should typically eat light foods as you take your pain medication.) Activity Discharge Activity: Return to Normal Activity and May Shower (with your bandage in place in 1-2 days after surgery. DO NOT SHOWER WHEN YOUR PORT IS ACCESSED.) Dressing / Incision Call your doctor if your incision/area has: Continuous Slow Oozing, Sudden Increased Bleeding, Increased Pain/ Swelling, Increased Redness and Foul Smelling Discharge Call your doctor if you observe: Fever of 101 or Higher Remove Dressing in: 2 days Cleanse incision/area with: Soap & Water Follow Up Care Please Follow Up With: Gonzales Perez MD When: as needed [phone] Test Results: Test results from this visit will be discussed in further detail at your follow-up appointment, if applicable. Discharge Plan Admission Attending Provider: Gonzales Perez Primary Care Provider: Darinel Foley Discharge Orders/Prescriptions Prescriptions: No Action budesonide-formoterol [Symbicort] 80-4.5 mcg/actuation HFA aerosol inhaler 2 puff inhalation BID RF: 0 ondansetron 8 mg tablet,disintegrating 8 mg PO Q8H PRN (Reason: nausea and vomiting) Qty: 30 RF: 2 Cetirizine Hcl [Zyrtec] 10 MG tablet 10 mg PO DAILY RF: 0 Simvastatin 20 mg PO DAILY RF: 0 albuterol sulfate 2.5 MG/3 ML solution for nebulization 2.5 mg inhalation Q4H PRN Qty: 30 RF: 1 Referrals / Follow Up: Darinel Foley MD [Primary Care Provider] - Disposition Disposition (needs filled in before D/C Order can be placed): Home, Self Care
[2021-07-09 08:15] VITALS: BP 130/79; BP 132/87; PULSE 59; RESP 16; O2SAT 96
[2021-07-09 08:20] VITALS: BP 130/79; BP 132/87; PULSE 61; RESP 16; TEMP 36.4; O2SAT 98
[2021-07-09 09:15] VITALS: BP 120/77; BP 130/79; PULSE 61; RESP 14; TEMP 36.2; O2SAT 99
== END 2021-07-09 23:59 | disposition home or self-care (01) ==
LOC: SDC 05:26 → AC 05:27
PROVIDERS: PCP Family Medicine; Referring Provider Surgery; Visit Provider Surgery
PROC: (CPT 36561; principal; 2021-07-09 07:15)
DX: Z45.2 Encounter for adjustment and management of vascular access device (principal); C20 Malignant neoplasm of rectum; E78.00 Pure hypercholesterolemia, unspecified; J45.909 Unspecified asthma, uncomplicated; K21.9 Gastro-esophageal reflux disease without esophagitis; Z79.899 Other long term (current) drug therapy
CPT/HCPCS: 36561; 00532; 71045; 77001; J7120; C1788

== ENCOUNTER 2021-10-09 12:14 | Emergency (ER) | payer OTHER, SELFPAY ==
[2021-10-09 12:15] VITALS: BP 148/94; PULSE 75; RESP 18; TEMP 35.7; O2SAT 100; BMI 30.9
--- NOTE | 2021-10-09 12:45 | CT_ITS ---
STUDY: CT BRAIN WITHOUT CONTRAST REASON FOR EXAM: Male, 51 years old. dizzy RADIATION DOSAGE (If Supplied By Facility): CTDIvol = ( 47.06 ) mGy, DLP = ( 907.97 ) mGycm TECHNIQUE: Transaxial CT imaging of the brain was performed without administration of intravenous contrast material. Individualized dose optimization techniques were used for this CT. COMPARISON: No relevant priors. FINDINGS: Normal soft tissue structures. Normal calvarium. Normal size ventricles and extra-axial spaces for the patient''s age. Normal white matter tracts of the cerebral hemispheres. Normal basal ganglia and thalami. Normal brainstem. Normal cerebellum. There is no intracranial hemorrhage. There are no findings of an acute ischemic infarction. Air-fluid level in the left axilla sinus consistent with acute sinusitis. CT/Brain/Head without Contrast IMPRESSION: Normal unenhanced CT scan of the brain. Electronically Signed: Rodney Hill MD at 13:38 EDT ,
--- NOTE | 2021-10-09 12:47 | EX.ED.DYSGE1 ---
HPI History of Present Illness Chief Complaint: Dizziness Informant: patient and spouse/S.O. Narrative Narrative: Patient presents with a sense of dizziness. He does feel slightly spinning. But it is really only when he turns his head to the right. He got onto a creeper to get under a bus to look for an oil leak. When he leaned to the right he got dizzy. Other directions do not bother him. No numbness tingling weakness. No headache. No nausea vomiting. It is still there if he turns to the right but not as bad. No discoordination. No recent head trauma. Patient did just have a sigmoidoscopy yesterday. But he has no abdominal pain. He has moved his bowels. He has no trouble eating or drinking. He did have a bowel prep prior with 2 enemas. No new medications or change in dosages. [facility] Medical History Anemia Asthma Cancer Chewing tobacco use CINV (chemotherapy-induced nausea and vomiting) Encounter for education Gastric reflux GERD (gastroesophageal reflux disease) High cholesterol History of echocardiogram Hypercholesteremia Iron deficiency anemia due to chronic blood loss Wears glasses Home Medications Cetirizine Hcl [Zyrtec] 10 mg PO DAILY 05/17/16 [History Last Taken Unknown] Simvastatin 20 mg PO DAILY 05/17/16 [History Last Taken Unknown] albuterol sulfate 2.5 mg INHALATION Q4H PRN #30 vial 10/22/18 [Rx Last Taken Unknown] budesonide-formoterol HFA 80 mcg-4.5 mcg/actuation aerosol inhaler 2 puff INHALATION BID 03/27/21 [History Last Taken Unknown] ondansetron 8 mg disintegrating tablet 8 mg PO Q8H PRN #30 tab 06/07/21 [Rx Last Taken Unknown] ondansetron HCl 8 mg tablet 8 mg PO Q12H PRN #20 tab 08/31/21 [Rx Last Taken Unknown] meclizine 25 mg PO TID PRN #20 tab 10/09/21 [Rx Last Taken Unknown] Allergy/AdvReac Type Severity Reaction Status Date / Time lansoprazole [From Prevacid] Allergy Severe Nausea Verified 10/09/21 12:16 theophylline AdvReac Severe Hives Verified 10/09/21 12:16 Family History Grandfather Cancer esophageal Mother Heart disease Grandmother Heart disease Surgical History Hx of colonoscopy Social History household members: spouse number of children: 2 current occupation: [employer] Smoking Status: Current some day smoker tobacco type: smokeless tobacco alcohol intake: current alcohol intake frequency: other substance use type: does not use ROS ROS ED Constitutional Constitutional ED: Denies chills or fever(s) Eyes Eyes: Denies blurry vision, change in vision or diplopia ENT ENT ED: Denies ear pain Cardiovascular Cardiovascular: Denies chest pain or palpitations Respiratory/Chest Respiratory/Chest: Denies cough or dyspnea Gastrointestinal Gastrointestinal: Denies nausea or vomiting Genitourinary Genitourinary ED: Denies dysuria Musculoskeletal Musculoskeletal: Denies back pain or neck pain Integumentary Denies rash Neurologic Neurologic: Reports other Details: See history of present illness ; Denies headache(s), paresthesias or weakness Endocrine Endocrinology: Denies polydipsia or polyuria Allergic/Immunologic Allergic/Immunologic ED: Denies urticaria EXAM Physical Exam Const Vital Signs: 10/09/21 12:15 10/09/21 12:36 Temperature 96.2 F L Temperature Source Temporal Pulse Rate 75 Respiratory Rate 18 Respiratory Effort Normal Non-Labored Respiratory Pattern Normal Blood Pressure 148/94 H Blood Pressure Mean 112 Pulse Ox 100 Oxygen Delivery Method Room Air Positive well nourished and well developed General Appearance ED: well developed and NAD HEENT Reports TM's clear and moist mucous membranes HEENT Narrative: No cerumen impaction. No sinus tenderness. Negative for trauma or tenderness Tympanic Membrane ED: Yes TM's clear Eyes PERRL and EOMs intact bilaterally Eyes Narrative: Not getting any nystagmus now. But when I have him turn to the right he is not getting symptoms now. Turning to either side up or down does not cause problems for Neck no lymphadenopathy and supple Chest Wall inspection of chest normal Resp normal respiratory effort and clear to auscultation bilaterally Cardio regular rate and regular rhythm GI normal to inspection, nondistended, normoactive bowel sounds, non-tender and non-distended Palpation: soft Back/Spine no CVA tenderness Extremity normal to inspection Neuro oriented x3 Sensorium / Orientation: alert Psych mental status grossly normal Skin no rashes or lesions noted MDM MDM MDM Narrative Medical decision making narrative: Patient CBC shows no acute process. No high white count or dropped hemoglobin. Electrolytes are overall unremarkable. Minimal elevation of glucose. CT scan is negative. Patient walked up and down the [place] he has a very steady normal gait. I think this is a positional vertigo. We will write for meclizine and have him follow-up. We did discuss reasons to return. Lab Data Attestation: I reviewed the patient's lab results. Labs: Laboratory Results - last 24 hr 10/09/21 10/09/21 13:08 13:08 WBC 7.0 RBC 4.63 Hgb 14.6 Hct 42.5 MCV 91.8 MCH 31.5 MCHC 34.4 RDW Std Deviation 55.7 H RDW Coeff of Rufus 16.4 H Plt Count 205 MPV 9.9 Immature Gran % (Auto) 0.900 Neut % (Auto) 68.9 Lymph % (Auto) 10.6 L Weld % (Auto) 7.2 Eos % (Auto) 11.7 H Baso % (Auto) 0.7 Absolute Neuts (auto) 4.8 Absolute Lymphs (auto) 0.74 L Nucleated RBC % 0 Sodium 140 Potassium 3.6 Chloride 107 Carbon Dioxide 26.0 Anion Gap 7 BUN 6 L Creatinine 0.88 Estim Creat Clear Calc 85.03 Est GFR (MDRD) Af Amer 119 Est GFR (MDRD) Non-Af 98 BUN/Creatinine Ratio 6.8 L Glucose 119 H Calcium 8.7 Radiography Diagnostic Testing: Clinical Impression(s) from Imaging Studies Brain CT 10/09/21 12:45 IMPRESSION: Normal unenhanced CT scan of the brain. Electronically Signed: Rodney Hill MD at 13:38 EDT , Discharge Plan Triage Chief Complaint: Dizziness ED Provider: David Spears Dx/Rx/DC Orders Clinical Impression: Benign positional vertigo Instructions: ED BPV Vertigo Prescriptions: New meclizine 25 mg tablet 25 mg PO TID PRN (Reason: dizziness) Qty: 20 RF: 0 No Action budesonide-formoterol [Symbicort] 80-4.5 mcg/actuation HFA aerosol inhaler 2 puff inhalation BID RF: 0 ondansetron 8 mg tablet,disintegrating 8 mg PO Q8H PRN (Reason: nausea and vomiting) Qty: 30 RF: 2 Cetirizine Hcl [Zyrtec] 10 MG tablet 10 mg PO DAILY RF: 0 Simvastatin 20 mg PO DAILY RF: 0 albuterol sulfate 2.5 MG/3 ML solution for nebulization 2.5 mg inhalation Q4H PRN Qty: 30 RF: 1 ondansetron HCl 8 mg tablet 8 mg PO Q12H PRN (Reason: nausea and vomiting) Qty: 20 RF: 0 Primary Care Provider: Darinel Foley Referrals: Darinel Foley MD [Primary Care Provider] - 3-5 Days Disposition Disposition: Home, Self Care
[2021-10-09] MEDS: 0.9% Normal Saline 1,000 ML 1000 ML IV (13:10)
[2021-10-09] MEDS: Meclizine HCl 25 MG Tablet PO (13:10)
[2021-10-09 13:21] LABS: Absolute Lymphocyte Count 0.74 X10^3/uL (0.83-4.51); Absolute Neutrophil Count 4.8 X10^3/uL (2.0-7.7); Basophil# 0.05 X10^3/uL; Basophil% 0.7 % (0-1); Eosinophil# 0.82 X10^3/uL; Eosinophils% 11.7 % (0-5); Hematocrit 42.5 % (40-54); Hemoglobin 14.6 g/dL (13.0-16.5); Lymphocyte # 0.74 X10^3/ul (0.83-4.51); Lymphocyte % 10.6 % (19-41); Mean Corp Hgb Conc 34.4 g/dL (32-36); Mean Corpuscular Hgb 31.5 pg (27.0-32.0); Mean Corpuscular Volume 91.8 fL (80-94); Mean Platelet Vol. 9.9 fl (6.2-12.0); Monocyte% 7.2 % (0-10); NRBC Flagged by Analyzer 0 % (0-5); Neutrophil # 4.81 X10^3/uL (2.7-7.7); Neutrophil % 68.9 % (47-70); Platelet Count 205 K/mm3 (150-450); RBC Distribution Width CV 16.4 % (11.6-14.6); RBC Distribution Width SD 55.7 fl (35.1-43.9); Red Blood Count 4.63 M/mm3 (4.6-6.2)
[2021-10-09 13:34] LABS: Anion Gap 7 (5-15); BUN 6 mg/dL (7-18); BUN/Creat Ratio 6.8 RATIO (10-20); Calcium,Total 8.7 mg/dL (8.5-10.1); Chloride 107 mmol/L (98-107); Creatinine, Serum 0.88 mg/dL (0.70-1.30); EST Glomerular Filtration Rate 98 mL/min (>60); Est Glom Filt Rate - Afr Amer 119 mL/min (>60); Estimated Creatinine Clearance 85.03 ml/min; Glucose 119 mg/dL (74-106); Potassium 3.6 mmol/L (3.5-5.1); Sodium Level 140 mmol/L (136-145)
[2021-10-09 14:01] VITALS: BP 143/97; PULSE 65; RESP 16; O2SAT 100
== END 2021-10-09 14:12 | disposition home or self-care (01) ==
PROVIDERS: Emergency Provider Emergency Medicine; PCP Family Medicine; Visit Provider Emergency Medicine
DX: H81.10 Benign paroxysmal vertigo, unspecified ear (principal); E78.00 Pure hypercholesterolemia, unspecified; F17.220 Nicotine dependence, chewing tobacco, uncomplicated; Z79.899 Other long term (current) drug therapy
CPT/HCPCS: 70450; 80048; 85025; 96360; 99285; J7030; A4216

== ENCOUNTER → 2021-10-18 | Outpatient (CLI) | payer OTHER, SELFPAY | END | disposition home or self-care (01) | LOC: PSN 14:04 | PROVIDERS: PCP Family Medicine; Referring Provider Colon & Rectal Surgery; Visit Provider Colon & Rectal Surgery | DX: Z20.822 Contact with and (suspected) exposure to COVID-19 (principal) | CPT/HCPCS: 87426; C9803 ==

== ENCOUNTER → 2022-04-15 | Outpatient (CLI) | payer OTHER, SELFPAY ==
--- NOTE | 2022-04-15 15:20 | CT_ITS ---
INDICATION: MONITOR RECTAL CANCER EXAMINATION: CT Abdomen And Pelvis W/ Contrast Injection TECHNIQUE: Helically acquired images were obtained of the abdomen and pelvis after IV contrast. A radiation dose optimization technique was used for this scan. IV Contrast dosage and agent: IV 100mL Isovue-300 Oral contrast: None. COMPARISON: 02/27/2021. FINDINGS: Visualized lung bases: Unremarkable Liver: Unremarkable Gallbladder: Unremarkable Spleen: Unremarkable Pancreas: Unremarkable Adrenal Glands: Unremarkable Kidneys: Unremarkable Vasculature: Unremarkable GI Tract: Post surgical changes in the rectum. No evidence of recurrent disease. Lymphadenopathy: None Peritoneum: No ascites. Bladder: Unremarkable Reproductive organs: Unremarkable Bones/Soft tissues: No suspicious osseous or soft tissue lesions CT/Abdomen/Pelvis WITH Contrast IMPRESSION: No evidence of recurrent or metastatic disease in the abdomen or pelvis. Electronically Signed: Israel Perkins MD at 22:04 EDT ,
[2022-04-15] MEDS: 0.9% Saline Lock 10 ML Syringe IV (15:25)
== END | disposition home or self-care (01) ==
LOC: CT 14:59
PROVIDERS: PCP Family Medicine; Referring Provider Internal Medicine Medical Oncology; Visit Provider Internal Medicine Medical Oncology
DX: C20 Malignant neoplasm of rectum (principal)
CPT/HCPCS: 74177; Q9967; A4216

== ENCOUNTER → 2022-10-25 | Outpatient (CLI) | payer OTHER, SELFPAY ==
--- NOTE | 2022-10-25 06:38 | CT_ITS ---
EXAM: CT ABDOMEN AND PELVIS WITH INTRAVENOUS CONTRAST CLINICAL INDICATION: monitor rectal cancer, chemotherapy, radiation, Power Port. TECHNIQUE: Helically acquired images were obtained of the abdomen and pelvis with intravenous contrast. This CT exam was performed using one or more of the following dose reduction techniques: automated exposure control, adjustment of the mA and/or kV according to patient size, and/or use of iterative reconstruction technique. CONTRAST: 100 cc of Isovue-370 IV. RADIATION DOSE: CTDIvol = 11.17 mGy, DLP = 925.17 mGy-cm COMPARISON: 04/15/2022. FINDINGS: LOWER THORAX: Unremarkable. Lung bases are clear. No cardiomegaly. No significant pericardial effusion. ABDOMEN: LIVER: There is diffuse low-attenuation of the liver. GALLBLADDER AND BILE DUCTS: Unremarkable. No calcified gallstones. No gallbladder distention or wall edema. No intra- or extrahepatic biliary ductal dilation. PANCREAS: Unremarkable. No focal cystic or solid mass. SPLEEN: Unremarkable. Normal size without focal cystic or solid mass. ADRENALS: Unremarkable. No nodules. KIDNEYS AND URETERS: Tiny cyst right kidney. Normal renal size and position. No hydronephrosis. STOMACH AND BOWEL: Small bowel anastomosis in the mid abdomen. Low rectal anastomosis. No evidence of recurrent or residual neoplasm. No stomach or bowel distention. No focal inflammatory change. PELVIS: APPENDIX: No evidence of acute appendicitis. BLADDER: Unremarkable. REPRODUCTIVE: Unremarkable as visualized. No mass. ABDOMEN and PELVIS: INTRAPERITONEAL SPACE: Unremarkable. No ascites or other fluid collection. No free air. BONES/JOINTS: Unremarkable. No suspicious lytic or blastic abnormality. SOFT TISSUES: Unremarkable. No discrete abdominal or pelvic wall hernia. VASCULATURE: Unremarkable. Abdominal aorta is non-dilated. LYMPH NODES: Unremarkable. No enlarged lymph nodes. CT/Abdomen/Pelvis W IV Cont ONLY IMPRESSION: 1. Fatty liver. 2. Postoperative changes with small bowel and rectal anastomoses. No evidence of residual or recurrent disease. 3. Tiny cyst right kidney. No follow-up imaging necessary. Electronically Signed: Freddy Jett MD at 18:53 EDT ,
[2022-10-25 07:37] LABS: Absolute Lymphocyte Count 1.57 X10^3/uL (0.83-4.51); Absolute Neutrophil Count 3.7 X10^3/uL (2.0-7.7); Basophil# 0.06 X10^3/uL; Basophil% 0.9 % (0-1); Eosinophil# 0.63 X10^3/uL; Eosinophils% 9.7 % (0-5); Hematocrit 45.2 % (40-54); Hemoglobin 14.3 g/dL (13.0-16.5); Lymphocyte # 1.57 X10^3/ul (0.83-4.51); Lymphocyte % 24.1 % (19-41); Mean Corp Hgb Conc 31.6 g/dL (32-36); Mean Corpuscular Hgb 27.2 pg (27.0-32.0); Mean Corpuscular Volume 86.1 fL (80-94); Mean Platelet Vol. 10.8 fl (6.2-12.0); Monocyte# 0.44 X10^3/uL; Monocyte% 6.8 % (0-10); NRBC Flagged by Analyzer 0 % (0-5); Neutrophil % 56.8 % (47-70); Platelet Count 211 K/mm3 (150-450); RBC Distribution Width CV 14.8 % (11.6-14.6); RBC Distribution Width SD 46.1 fl (35.1-43.9); Red Blood Count 5.25 M/mm3 (4.6-6.2); White Blood Count 6.5 K/mm3 (4.4-11.0)
[2022-10-25 08:08] LABS: PSA,Total - Annual Screen 0.52 ng/mL (0.00-4.00)
[2022-10-25 08:44] LABS: AST(SGOT) 20 U/L (15-37); Alanine Aminotransfer ALT/SGPT 33 U/L (16-61); Albumin, Serum 3.5 g/dL (3.2-5.0); Alkaline Phosphatase 95 U/L (45-117); Anion Gap 8 (5-15); BUN 13 mg/dL (7-18); BUN/Creat Ratio 13.2 RATIO (10-20); Chloride 109 mmol/L (98-107); Creatinine, Serum 0.98 mg/dL (0.70-1.30); EST Glomerular Filtration Rate 86 mL/min (>60); Est Glom Filt Rate - Afr Amer 104 mL/min (>60); Globulin 3.6 g/dL (2.2-4.2); Glucose 151 mg/dL (74-106); LDH 164 U/L (87-241); Potassium 3.6 mmol/L (3.5-5.1); Protein, Total 7.1 g/dL (6.4-8.2); Sodium Level 141 mmol/L (136-145)
[2022-10-25 14:38] LABS: Xtra Tube EP Lab EXTRA TUBE
[2022-10-26 04:07] LABS: Carcinoembryonic Antigen 3.1 ng/mL (0.0-4.7)
== END | disposition home or self-care (01) ==
LOC: CT 06:18
PROVIDERS: PCP Family Medicine; Referring Provider Internal Medicine Medical Oncology; Visit Provider Internal Medicine Medical Oncology
DX: C20 Malignant neoplasm of rectum (principal); Z12.5 Encounter for screening for malignant neoplasm of prostate
CPT/HCPCS: 36415; 74177; 80053; 82378; 83615; 84153; 85025; Q9967; A4216; G0103

== ENCOUNTER → 2022-12-02 | Outpatient (CLI) | payer OTHER, SELFPAY ==
[2022-12-02 11:55] LABS: ALB/GLOB Ratio 0.9 RATIO (0.9-2.4); AST(SGOT) 30 U/L (15-37); Alanine Aminotransfer ALT/SGPT 33 U/L (16-61); Albumin, Serum 3.4 g/dL (3.2-5.0); Alkaline Phosphatase 90 U/L (45-117); Anion Gap 4 (5-15); BUN 12 mg/dL (7-18); BUN/Creat Ratio 12.7 RATIO (10-20); Chloride 110 mmol/L (98-107); Cholesterol 156 mg/dL (200); Creatinine, Serum 0.94 mg/dL (0.70-1.30); EST Glomerular Filtration Rate 90 mL/min (>60); Est Glom Filt Rate - Afr Amer 109 mL/min (>60); Globulin 3.7 g/dL (2.2-4.2); Glucose 105 mg/dL (74-106); High Density Lipoprotein 27 mg/dL; Protein, Total 7.1 g/dL (6.4-8.2); Sodium Level 141 mmol/L (136-145); Triglycerides 160 mg/dL; Very Low Density Lipoprotein 32 mg/dL (5-40)
== END | disposition home or self-care (01) ==
LOC: LAB 10:15
PROVIDERS: PCP Family Medicine; Referring Provider Family Medicine; Visit Provider Family Medicine
DX: E78.5 Hyperlipidemia, unspecified (principal)
CPT/HCPCS: 36415; 80053; 80061

== ENCOUNTER → 2023-04-21 | Outpatient (CLI) | payer OTHER, SELFPAY ==
--- NOTE | 2023-04-21 06:44 | CT_ITS ---
STUDY: CT ABDOMEN AND PELVIS WITH CONTRAST REASON FOR EXAM: Male, 52 years old. Known rectal CA RADIATION DOSAGE (If Supplied By Facility): CTDIvol = ( 25.45 ) mGy, DLP = ( 1184.24 ) mGycm TECHNIQUE: Transaxial images were obtained from the dome of the diaphragm to the symphysis pubis without oral contrast. IV 100mL Isovue-370 was administered. Sagittal and coronal images were reconstructed. Individualized dose optimization techniques were used for this CT. COMPARISON: 10/25/2022 FINDINGS: The visualized lung bases are unremarkable. The visualized portions of the heart are within normal limits. There is decreased attenuation of the liver consistent with steatosis. Normal gallbladder and extrahepatic biliary system. Normal spleen. Normal pancreas. Normal bilateral adrenal glands. No obstructive uropathy or suspicious solid renal lesion, stable 1 cm right renal cyst. There is a small hiatal hernia. Normal small intestine. Normal colon. The appendix is visualized and appears normal. Appendix seen on coronal recon images 65 through 75 Normal abdominal aorta. Normal inferior vena cava. Normal retroperitoneum. Normal urinary bladder. Stable anastomosis between the distal sigmoid colon and rectum, no demonstrated leak Normal abdominal wall. Normal osseous structures. There is a broad-based disc bulge at L5-S1 CT/Abdomen/Pelvis W IV Cont ONLY IMPRESSION: Fatty liver, no discrete lesion No free intraperitoneal fluid, air, or suspicious adenopathy Stable right renal cyst, no specific follow-up needed No significant interval change Electronically Signed: Marc Adame MD at 8:52 EST ,
[2023-04-21 07:19] LABS: Absolute Lymphocyte Count 1.82 X10^3/uL (0.83-4.51); Absolute Neutrophil Count 3.6 X10^3/uL (2.0-7.7); Basophil# 0.06 X10^3/uL; Basophil% 0.9 % (0-1); Eosinophil# 1.05 X10^3/uL; Hematocrit 47.2 % (40-54); Hemoglobin 15.1 g/dL (13.0-16.5); Lymphocyte # 1.82 X10^3/ul (0.83-4.51); Mean Corpuscular Hgb 28.5 pg (27.0-32.0); Mean Corpuscular Volume 89.1 fL (80-94); Mean Platelet Vol. 10.6 fl (6.2-12.0); Monocyte# 0.42 X10^3/uL; NRBC Flagged by Analyzer 0 % (0-5); Neutrophil # 3.58 X10^3/uL (2.7-7.7); Neutrophil % 51.2 % (47-70); Platelet Count 214 K/mm3 (150-450); RBC Distribution Width CV 13.8 % (11.6-14.6); RBC Distribution Width SD 44.7 fl (35.1-43.9)
[2023-04-21 07:44] LABS: ALB/GLOB Ratio 0.9 RATIO (0.9-2.4); AST(SGOT) 19 U/L (15-37); Alanine Aminotransfer ALT/SGPT 30 U/L (16-61); Albumin, Serum 3.5 g/dL (3.2-5.0); Alkaline Phosphatase 93 U/L (45-117); Anion Gap 4 (5-15); BUN 14 mg/dL (7-18); BUN/Creat Ratio 12.4 RATIO (10-20); Calcium,Total 9.3 mg/dL (8.5-10.1); Chloride 106 mmol/L (98-107); Creatinine, Serum 1.13 mg/dL (0.70-1.30); EST Glomerular Filtration Rate 73 mL/min (>60); Est Glom Filt Rate - Afr Amer 88 mL/min (>60); Globulin 3.8 g/dL (2.2-4.2); Glucose 161 mg/dL (74-106); LDH 161 U/L (87-241); Protein, Total 7.3 g/dL (6.4-8.2); Sodium Level 140 mmol/L (136-145)
[2023-04-22 04:07] LABS: Carcinoembryonic Antigen 2.9 ng/mL (0.0-4.7)
== END | disposition home or self-care (01) ==
LOC: CT 06:36
PROVIDERS: PCP Family Medicine; Referring Provider Internal Medicine Medical Oncology; Visit Provider Internal Medicine Medical Oncology
DX: C20 Malignant neoplasm of rectum (principal)
CPT/HCPCS: 36415; 74177; 80053; 82378; 83615; 85025; Q9967

== ENCOUNTER → 2023-11-17 | Outpatient (CLI) | payer OTHER, SELFPAY ==
--- NOTE | 2023-11-17 06:51 | CT_ITS ---
HISTORY: MONITOR RECTAL CA. TECHNIQUE: Helically acquired images were obtained of the abdomen and pelvis after the intravenous administration of 100 mL Isovue-300. A radiation dose optimization technique was used for this scan. 452 images. COMPARISON: 04/21/2023, 10/25/2022, 03/29/2021. FINDINGS: LOWER CHEST: Lung bases clear. BOWEL: Mild hiatal hernia. Bowel including appendix nondilated. Unchanged appearance of small bowel anastomosis. Moderate stool in the colon. Unchanged appearance of rectal anastomosis. PERITONEUM: No significant ascites or pathologically enlarged lymph nodes. LIVER: No enhancing mass. Fatty infiltration. GALLBLADDER/BILIARY TREE: Gallbladder present. SPLEEN/PANCREAS/ADRENAL GLANDS: Homogeneous and nonenlarged. KIDNEYS: No hydronephrosis. Stable 1.2 cm right renal cyst. VESSELS: No abdominal aortic aneurysm. PELVIC ORGANS: Unremarkable. No perirectal lymphadenopathy. ABDOMINAL WALL: Mild anterior scarring. BONES: Stable small bone islands in the pelvis and hips. No suspicious osteoblastic or osteolytic lesion. CT/Abdomen/Pelvis W IV Cont ONLY IMPRESSION: No significant interval change. No evidence for tumor recurrence or metastatic disease. Stable postoperative changes of the small bowel and rectum. Hepatic steatosis. Stable small right renal cyst. Electronically Signed: Amanda Altman MD at 8:58 EDT ,
[2023-11-17 07:04] LABS: Absolute Lymphocyte Count 1.38 X10^3/uL (0.83-4.51); Absolute Neutrophil Count 3.7 X10^3/uL (2.0-7.7); Basophil# 0.05 X10^3/uL; Basophil% 0.8 % (0-1); Eosinophil# 0.59 X10^3/uL; Eosinophils% 9.5 % (0-5); Hematocrit 45.1 % (40-54); Hemoglobin 14.7 g/dL (13.0-16.5); Lymphocyte # 1.38 X10^3/ul (0.83-4.51); Lymphocyte % 22.2 % (19-41); Mean Corp Hgb Conc 32.6 g/dL (32-36); Mean Corpuscular Hgb 28.6 pg (27.0-32.0); Mean Corpuscular Volume 87.7 fL (80-94); Mean Platelet Vol. 10.1 fl (6.2-12.0); Monocyte% 6.4 % (0-10); NRBC Flagged by Analyzer 0 % (0-5); Neutrophil # 3.72 X10^3/uL (2.7-7.7); Platelet Count 213 K/mm3 (150-450); RBC Distribution Width CV 13.6 % (11.6-14.6); RBC Distribution Width SD 43.8 fl (35.1-43.9); Red Blood Count 5.14 M/mm3 (4.6-6.2); White Blood Count 6.2 K/mm3 (4.4-11.0)
[2023-11-17 07:22] LABS: ALB/GLOB Ratio 1.1 RATIO (0.9-2.4); AST(SGOT) 19 U/L (15-37); Alanine Aminotransfer ALT/SGPT 29 U/L (16-61); Albumin, Serum 3.6 g/dL (3.2-5.0); Alkaline Phosphatase 88 U/L (45-117); Anion Gap 5 (5-15); BUN 13 mg/dL (7-18); Calcium,Total 9.7 mg/dL (8.5-10.1); Chloride 107 mmol/L (98-107); EST Glomerular Filtration Rate 84 mL/min (>60); Est Glom Filt Rate - Afr Amer 102 mL/min (>60); Globulin 3.4 g/dL (2.2-4.2); Glucose 124 mg/dL (74-106); LDH 152 U/L (87-241); Potassium 4.1 mmol/L (3.5-5.1); Sodium Level 141 mmol/L (136-145)
[2023-11-17 14:43] LABS: Xtra Tube EP Lab EXTRA TUBE
== END | disposition home or self-care (01) ==
LOC: CT 06:40
PROVIDERS: PCP Family Medicine; Referring Provider Internal Medicine Medical Oncology; Visit Provider Internal Medicine Medical Oncology
DX: C20 Malignant neoplasm of rectum (principal)
CPT/HCPCS: 36415; 74177; 80053; 82378; 83615; 85025; Q9967

== ENCOUNTER → 2024-05-21 | Outpatient (CLI) | payer OTHER, SELFPAY ==
--- NOTE | 2024-05-21 14:56 | CT_ITS ---
STUDY: CT ABDOMEN AND PELVIS WITH CONTRAST REASON FOR EXAM: Male, 53 years old. MONITOR RECTAL CA RADIATION DOSAGE (If Supplied By Facility): CTDIvol = ( 23.26 ) mGy, DLP = ( 1299.04 ) mGycm TECHNIQUE: Transaxial images were obtained from the dome of the diaphragm to the symphysis pubis without oral contrast. Oral and amp; IV Readi-CAT and amp; 100mL Isovue-300 was administered. Sagittal and coronal images were reconstructed. 3-D images were reconstructed. Individualized dose optimization techniques were used for this CT. COMPARISON: Comparison is made with prior examination dated November 17, 2023. FINDINGS: Mild increased linear markings at the lung bases suggestive of bibasilar atelectasis. A dual-chamber pacemaker is seen. Coronary artery calcification. There is decreased attenuation of the liver consistent with steatosis. Normal gallbladder and extrahepatic biliary system. Normal spleen. Normal pancreas. Normal bilateral adrenal glands. Stable 1.2 cm right renal cyst. Normal left kidney. There is a small hiatal hernia. Normal small intestine. Normal colon. The appendix is visualized and appears normal. Normal abdominal aorta. Normal inferior vena cava. Normal retroperitoneum. Normal urinary bladder. Persistent defect is seen in the anterior lower abdominal wall most likely from reversal of a colostomy. Normal osseous structures. CT/Abdomen/Pelvis WITH Contrast IMPRESSION: Stable examination. Electronically Signed: Alek Johnson MD at 11:00 EST ,
[2024-05-21] MEDS: 0.9 % NaCl (Sterile) Posiflush 10 mL IV (15:32)
== END | disposition home or self-care (01) ==
PROVIDERS: PCP Family Medicine; Referring Provider Internal Medicine Medical Oncology; Visit Provider Internal Medicine Medical Oncology
DX: C20 Malignant neoplasm of rectum (principal)
CPT/HCPCS: 74177; Q9967; A4216

== ENCOUNTER → 2024-10-07 | Outpatient (CLI) | payer OTHER, SELFPAY ==
[2024-10-07 10:44] LABS: ALB/GLOB Ratio 1.5 RATIO (0.9-2.4); AST(SGOT) 27 U/L (<=37); Alanine Aminotransfer ALT/SGPT 28 U/L (<=46); Albumin, Serum 4.1 g/dL (3.5-5.0); Alkaline Phosphatase 81 U/L (40-129); Anion Gap 12 (5-15); BUN 9 mg/dL (4-19); Calcium,Total 9.4 mg/dL (7.6-11.0); Carbon Dioxide 23.6 mmol/L (21.0-32.0); Chloride 106 mmol/L (98-108); Cholesterol 139 mg/dL (<=200); Creatinine, Serum 0.86 mg/dL (0.70-1.20); EST Glomerular Filtration Rate 104 (>60); Globulin 2.8 g/dL (2.2-4.2); Glucose 127 mg/dL (70-99); High Density Lipoprotein 29 mg/dL; Low Density Lipoprotein Calc. 66 mg/dL; PSA,Total - Annual Screen 0.48 ng/mL (0.02-4.00); Potassium 3.9 mmol/L (3.3-5.1); Protein, Total 6.9 g/dL (5.9-8.4); Sodium Level 141 mmol/L (133-145); Triglycerides 220 mg/dL; Very Low Density Lipoprotein 44 mg/dL (5-40); cholesterol:hdl ratio screen 4.78
== END | disposition home or self-care (01) ==
LOC: MFPLAB 08:44
PROVIDERS: PCP Family Medicine; Referring Provider Family Medicine; Visit Provider Family Medicine
DX: Z12.5 Encounter for screening for malignant neoplasm of prostate (principal); Z13.220 Encounter for screening for lipoid disorders; E78.5 Hyperlipidemia, unspecified
CPT/HCPCS: 36415; 80053; 80061; 84153; G0103

== ENCOUNTER → 2025-05-17 | Outpatient (CLI) | payer OTHER, SELFPAY ==
[2025-05-17 11:24] LABS: Hematocrit 45.6 % (40-54); Hemoglobin 15.2 g/dL (13.0-16.5); Immature Granulocytes Count 0.080 X10^3/uL (0.0-0.0); Mean Corp Hgb Conc 33.3 g/dL (32-36); Mean Corpuscular Volume 87.0 fL (80-94); Mean Platelet Vol. 10.7 fl (6.2-12.0); NRBC Flagged by Analyzer 0 % (0-5); Platelet Count 232 K/mm3 (150-450); RBC Distribution Width CV 13.3 % (11.6-14.6); RBC Distribution Width SD 42.2 fl (35.1-43.9); Red Blood Count 5.24 M/mm3 (4.6-6.2); White Blood Count 7.0 K/mm3 (4.4-11.0)
[2025-05-17 12:19] LABS: AST(SGOT) 23 U/L (<=37); Alanine Aminotransfer ALT/SGPT 31 U/L (<=46); Albumin, Serum 4.3 g/dL (3.5-5.0); Alkaline Phosphatase 89 U/L (40-129); Anion Gap 10 (5-15); BUN 10 mg/dL (4-19); BUN/Creat Ratio 10.9 RATIO (10-20); Calcium,Total 9.4 mg/dL (7.6-11.0); Carbon Dioxide 26.0 mmol/L (21.0-32.0); Chloride 106 mmol/L (98-108); Globulin 2.9 g/dL (2.2-4.2); Glucose 124 mg/dL (70-99); LDH 187 U/L (87-241); Potassium 4.2 mmol/L (3.3-5.1)
[2025-05-18 04:07] LABS: Carcinoembryonic Antigen 3.1 ng/mL (0.0-4.7)
== END | disposition home or self-care (01) ==
LOC: LAB 10:44
PROVIDERS: PCP Family Medicine; Referring Provider Internal Medicine Medical Oncology; Visit Provider Internal Medicine Medical Oncology
DX: C20 Malignant neoplasm of rectum (principal)
CPT/HCPCS: 36415; 80053; 82378; 83615; 85025